=== PATIENT | female | born 1965 | race Caucasian/White ===

== ENCOUNTER 2018-03-22 12:24 | Emergency (ER) | payer OTHER ==
[~2018-03-22] VITALS: Ht 170.2 cm; Wt 64.5 kg
[~2018-03-22 12:24] MED LIST: CLINDAMYCIN HC300 MG PO; ESTROVEN NIGHT1 EAC1 PO; LIDODERM 5% P1 PATCH TD; MEDROL DOSEPAK4 MG PO; MOTRIN400 MG PO; NAPROSYN500 MG PO; NAPROXEN500 MG PO; TRAMADOL HCL50 MG PO; ULTRAM50 MG PO; VALIUM2 MG PO
[2018-03-22 13:37] VITALS: BP 114/80
== END 2018-03-22 13:26 | disposition home or self-care (01) ==
LOC: EME 12:24
DX: S80.812A Abrasion, left lower leg, initial encounter (principal); W01.0XXA Fall on same level from slipping, tripping and stumbling without subsequent striking against object, initial encounter; Y92.008 Other place in unspecified non-institutional (private) residence as the place of occurrence of the external cause; Z88.0 Allergy status to penicillin
CPT/HCPCS: 99281; 99284